=== PATIENT | male | born 1940 | race Caucasian/White ===

== ENCOUNTER 2017-06-20 09:35 | Inpatient (IN) | payer MEDICARE ==
[~2017-06-20] VITALS: Ht 172.7 cm; Wt 59.0 kg
[2017-06-20] MEDS ORDERED: IV NS 0.9% 1,000 ML BAG IV ONE (10:00)
[2017-06-20 10:09] LABS: BASOPHILS # (AUTO) 0.1 /CMM (0.0-0.2); BASOPHILS % (AUTO) 0.4 % (0.0-2.0); EOSINOPHILS # (AUTO) 0.3 /CMM (0.0-0.7); EOSINOPHILS % (AUTO) 2.3 % (0.0-6.0); HEMATOCRIT 38 % (39-51); HEMOGLOBIN 12.8 g/dL (13.5-17.5); LYMPHOCYTES # (AUTO) 2.2 /CMM (0.8-4.8); LYMPHOCYTES % (AUTO) 17.8 % (20.0-44.0); MEAN CORPUSCULAR HEMOGLOBIN 32 PG (26.0-33.0); MEAN CORPUSCULAR HGB CONC 33 g/dl (31.0-36.0); MEAN CORPUSCULAR VOLUME 96 fL (80-96); MONOCYTES # (AUTO) 1.1 /CMM (0.1-1.30); NEUTROPHILS # (AUTO) 8.9 /CMM (1.8-8.9); NEUTROPHILS % (AUTO) 70.5 % (43.0-81.0); PLATELET COUNT (AUTO) 159 /CMM (150-450); RDW COEFFICIENT OF VARIATION 13.1 (11.5-15.0); RED BLOOD CELL COUNT(AUTO) 3.96 MIL/uL (4.5-6.0); WHITE BLOOD COUNT (AUTO) 12.6 K/uL (4.3-11.0)
--- NOTE | 2017-06-20 10:27 | NUR ---
Pt BIB private ambulance, reports that pt has not been eating well for 7 days and is weak, worse in last 2 days. Pt A&Ox2, denies not eating well and weakness. Pt denies CP, SOB, dizziness, n/v, no complaints, no distress noted.
[2017-06-20 10:29] LABS: TROPONIN I 0.062 ng/mL (0.00-0.056)
[2017-06-20 10:31] LABS: INR 0.9 (0.87-1.13); PROTHROMBIN TIME 9.4 SECS (9.5-12.7)
[2017-06-20 10:32] LABS: ALANINE AMINOTRANSFERASE 326 U/L (12-78); ALBUMIN 3.4 g/dL (3.4-5.0); ALKALINE PHOSPHATASE 63 U/L (46-116); ASPARTATE AMINOTRANSFERASE 378 U/L (15-37); BILIRUBIN,DIRECT 0.2 mg/dL (0.0-0.2); BILIRUBIN,TOTAL 0.5 mg/dL (0.2-1.0); CARBON DIOXIDE 20 mmol/L (21-32); CHLORIDE 107 mmol/L (98-107); CREATININE 2.3 mg/dL (0.6-1.3); GLUCOSE 76 mg/dL (74-106); POTASSIUM 4.1 mmol/L (3.5-5.1); SODIUM SERUM 139 mmol/L (136-145); TOTAL PROTEIN, SERUM 7.2 g/dL (6.4-8.2)
[2017-06-20] MEDS ORDERED: CLOP75TA2 PO (10:34)
[2017-06-20] MEDS ORDERED: AMLO5TAB2 PO (10:34)
[2017-06-20] MEDS ORDERED: LISI10TA5 PO (10:34)
[2017-06-20] MEDS ORDERED: ESCI10TA PO (10:34)
[2017-06-20] MEDS ORDERED: POTA20TA83 PO (10:34)
[2017-06-20] MEDS ORDERED: FERR-58 PO (10:34)
[2017-06-20] MEDS ORDERED: PANT40TA4 PO (10:34)
[2017-06-20] MEDS ORDERED: MULT-659 PO (10:34)
[2017-06-20] MEDS ORDERED: ATOR40TA PO (10:34)
[2017-06-20] MEDS ORDERED: HYDR12.55 PO (10:34)
--- NOTE | 2017-06-20 10:36 | NUR ---
Paged Dr Terrell. Waiting for return call.
[2017-06-20 10:38] LABS: UREA NITROGEN, BLOOD 51 mg/dL (7-18)
[2017-06-20] MEDS ORDERED: CLOPIDOGREL BISULFATE 75 MG TABLET PO ONE (11:00)
[2017-06-20] MEDS ORDERED: AZITHROMYCIN 500 MG in IV D5W 250 ML IV ONE (11:00)
[2017-06-20] MEDS ORDERED: CEFTRIAXONE 1GM BAG (ER ONLY) 50 ML IV ONE (11:00)
[2017-06-20] MEDS ORDERED: AZITHROMYCIN 500 MG VIAL ONE (11:07)
[2017-06-20] MEDS ORDERED: CEFTRIAXONE 1 G VIAL ONE (11:07)
[2017-06-20] MEDS ORDERED: CLOPIDOGREL BISULFATE 75 MG TABLET ONE (11:07)
--- NOTE | 2017-06-20 11:39 | NUR ---
Called report to Amita.
--- NOTE | 2017-06-20 12:05 | NUR ---
TELE/RN NOTES RECEIVED PATIENT FROM ER VIA [facility] WITH ADMITTING DIAGNOSIS OF PNA, CHIEF COMPLIANT OF WEAKNESS, POOR ORAL INTAKE. PAST MEDICAL HISTORY OF CAD, HYPERTENSION, GASTRITIS, ALLERGIC TO ASPIRIN, FULL CODE NO ISO. PATIENT ALERT AND ORIENTED X2-3, ABLE TO FOLLOW VERBAL COMMANDS. TELE MONITORING TO EXTERNAL CHEST WITH SR WITH PAC 69. IV TO RIGHT AC 20G INFUSING ZITHRO AT THIS TIME. NO SKIN ISSUES NOTED AT THIS TIME. SAFETY MEASURES RENDERED, CALL LIGHT PLACED WITHIN REACH WILL CONTINUE TO MONITOR.
--- NOTE | 2017-06-20 15:02 | NUR ---
TELE/RN NOTES PATIENT GOT OUT OF BED TO USE THE RESTROOM WITHOUT CALLING FOR ASSISTANCE AND PULLED THE IV LINE OUT, BLOOD ALL OVER PLACE. CLEANED PATIENT AND COVERED SITE WITH 4X4. PATIENT NOTED WITH ACTIVE BLEEDING FORM AC POSSIBLY DUE TO THE PLAVIX. WILL START NEW IV LINE
[2017-06-20 16:00] VITALS: BP 122/72
--- NOTE | 2017-06-20 16:00 | NUR ---
TELE/RN NOTES STARTED IV TO LEFT AC 20G, IV FLUSH IV SUCCESSFUL WITH GOOD GOOD BLOOD RETURN.
[2017-06-20] MEDS ORDERED: ONDANSETRON HCL/PF 4 MG/2 ML VIAL IV PRN (17:30)
[2017-06-20] MEDS ORDERED: ACETAMINOPHEN 325 MG TABLET PO PRN (17:30)
[2017-06-20] MEDS ORDERED: Z GUARD REMEDY 4 OZ OINT TP PRN (17:30)
[2017-06-20] MEDS ORDERED: IV NS 0.9% 1,000 ML BAG IV PRN (18:00)
--- NOTE | 2017-06-20 18:52 | NUR ---
TELE/RN NOTES PATIENT RESTING IN BED COMFORTABLY IN BED, NO SIGNIFICANT CHANGES NOTED, STABLE. ALL DUE MEDIATIONS GIVEN ALL NEEDS MET AND ATTENDED. PATIENT KEPT SAFE, CLEAN AND COMFORTABLE. DR ALSTON AT BEDSIDE DISCUSSING CARE WITH ALL DISCIPLINES. WILL ENDORSE CARE TO SLASHER RUNNER FOR RHIANNON
--- NOTE | 2017-06-20 19:40 | NUR ---
ROLLWAY MAN OPENING NOTES RECEIVED PATIENT RESTING IN BED, A & O X 3, NO SOB, NO C/O PAIN, NO ACUTE CHANGES NOTED. RESP EVEN & NON LABORED. ON TELE MONITORING WITH SR PAC @ 66. IV ACCESS TO LAC, INTACT PATENT. SAFETY MEASURES IN PLACE. BED ALARM ON & IN LOW LOCKED POSITION. CALL LIGHT WITHIN REACH. WILL CONTINUE TO OBSERVE.
[2017-06-20 20:00] VITALS: BP 113/56
[2017-06-20] MEDS: BOOST PLUS FOOD-CHOCLATE 237 ML BOX PO SCH (20:27)
[2017-06-20 20:57] LABS: APPEARANCE,URINE CLEAR (CLEAR); BILIRUBIN,URINE NEGATIVE (NEGATIVE); BLOOD, URINE 3+ Ery/uL (NEGATIVE); COLOR,URINE YELLOW (YELLOW); KETONES,URINE NEGATIVE (NEGATIVE); LEUKOCYTE ESTERASE ,URINE NEGATIVE (NEGATIVE); NITRITE, URINE NEGATIVE (NEGATIVE); PH,URINE 5.5 (5.0-8.0); PROTEIN,URINE TRACE mg/dl (NEGATIVE); UGLUCOSE NEGATIVE (NEGATIVE); UROBILINOGEN,URINE 0.2 EU/dL (0.2)
[2017-06-20 20:59] LABS: BACTERIA,URINE Few /HPF (None Seen); SQUAMOUS EPITHELIAL CELL,UR Few /HPF (None Seen); WBC,URINE NONE SEEN /HPF (0-3)
[2017-06-20] MEDS: IV NS 0.9% 1,000 ML IV PRN (21:00)
[2017-06-21] VITALS (7 sets, daily range): BP systolic 108–124; BP diastolic 44–67
[2017-06-21 06:29] LABS: BASOPHILS % (AUTO) 0.1 % (0.0-2.0); EOSINOPHILS # (AUTO) 0.2 /CMM (0.0-0.7); HEMATOCRIT 35 % (39-51); HEMOGLOBIN 11.7 g/dL (13.5-17.5); LYMPHOCYTES # (AUTO) 1.9 /CMM (0.8-4.8); MEAN CORPUSCULAR HEMOGLOBIN 33 PG (26.0-33.0); MEAN CORPUSCULAR HGB CONC 34 g/dl (31.0-36.0); MEAN CORPUSCULAR VOLUME 97 fL (80-96); MONOCYTES # (AUTO) 0.8 /CMM (0.1-1.30); MONOCYTES % (AUTO) 8.6 % (2.0-12.0); NEUTROPHILS % (AUTO) 70.3 % (43.0-81.0); PLATELET COUNT (AUTO) 126 /CMM (150-450); RDW COEFFICIENT OF VARIATION 13.7 (11.5-15.0); RED BLOOD CELL COUNT(AUTO) 3.56 MIL/uL (4.5-6.0); WHITE BLOOD COUNT (AUTO) 9.9 K/uL (4.3-11.0)
--- NOTE | 2017-06-21 06:41 | NUR ---
CORRECTIONAL FACILITY PSYCHIATRIST CLOSING NOTES PATIENT SLEPT WELL @ NIGHT, NO SOB, RESP EVEN & NONLABORED. NO C/O PAIN, NO SOB NOTED. A & O X 3. ON TELE MONITORING WITH SR 62. BRP WITH ASSIST @ NIGHT. IV ACCESS TO LAC, INTACT PATENT, RUNNING WITH NS @ 75 ML/HR. NO ACUTE CHANGES NOTED. SAFETY MEASURES IN PLACE. BED IN LOW LOCKED POSITION. CALL LIGHT WITHIN REACH. WILL ENDORSE TO AM RN FOR CONTINUITY OF CARE.
[2017-06-21 07:05] LABS: ALANINE AMINOTRANSFERASE 281 U/L (12-78); ALBUMIN 2.8 g/dL (3.4-5.0); ALKALINE PHOSPHATASE 57 U/L (46-116); ASPARTATE AMINOTRANSFERASE 301 U/L (15-37); BILIRUBIN,TOTAL 0.4 mg/dL (0.2-1.0); CALCIUM, SERUM 8.8 mg/dL (8.5-10.1); CARBON DIOXIDE 18 mmol/L (21-32); CHLORIDE 110 mmol/L (98-107); CREATININE 1.6 mg/dL (0.6-1.3); GLUCOSE 89 mg/dL (74-106); POTASSIUM 4.4 mmol/L (3.5-5.1); SODIUM SERUM 139 mmol/L (136-145); TOTAL PROTEIN, SERUM 6.1 g/dL (6.4-8.2); UREA NITROGEN, BLOOD 44 mg/dL (7-18)
[2017-06-21 07:08] LABS: TROPONIN I 0.073 ng/mL (0.00-0.056)
--- NOTE | 2017-06-21 07:29 | NUR ---
HARNESS BRUSHER OPENING NOTES RECEIVED PATIENT AWAKE IN BED IN NO ACUTE SIGNS OF DISTRESS. A/O X 3, SAME ABLE TO MAKE NEEDS KNOWN, DENIES PAIN OR DISCOMFORTS AT THIS TIME. ON ROOM AIR, TOLERATING RA WITH NO SOB NOTED. ON TELE-MONITORING WITH CURRENT READINGS OF SR AND HR 67. IV ACCESS ON LOWER FOREARM INTACT PATENT, IVF OF NS @ 75ML/HR RUNNING, NO SIGNS OF INFILTRATION NOTED. BED ALARM ON. BED IN LOW/LOCKED POSITION. CALL LIGHT WITHIN REACH. WILL CONTINUE TO MONITOR ACCORDINGLY.
--- NOTE | 2017-06-21 08:32 | NUR ---
RN NOTES PATIENT SEEN AND EVALUATED BY DR. ARIAS WITH ORDER TO DISCONTINUE TELE-MONITORING. ORDER CARRIED OUT, PT WITH NO C/O CHEST PAIN OR DISCOMFORTS VOICED. WILL CONTINUE TO MONITOR.
[2017-06-21] MEDS: BOOST PLUS FOOD-CHOCLATE 237 ML BOX PO SCH ×2 (08:56→17:08)
[2017-06-21] MEDS: MULTIVITAMINS,THERAGRAN 1 UDTAB TABLET PO SCH (09:12)
[2017-06-21] MEDS: CLOPIDOGREL BISULFATE 75 MG TABLET PO SCH (09:12)
[2017-06-21] MEDS: PANTOPRAZOLE 40 MG TABLET.DR PO SCH (09:12)
[2017-06-21] MEDS: ESCITALOPRAM OXALATE (10 MG) 10 MG TABLET PO SCH (09:12)
[2017-06-21] MEDS: CEFTRIAXONE 1 G in IV D5W 50 ML IV SCH (11:38)
[2017-06-21] MEDS: AZITHROMYCIN 500 MG in IV D5W 250 ML IV SCH (12:13)
[2017-06-21] MEDS: IV NS 0.9% 1,000 ML IV PRN (17:11)
--- NOTE | 2017-06-21 17:41 | NUR ---
Spoke with Rosa - staff submarine warfare officer at the [facility], confirmed patient resides at [facility] [phone]. Patient is ambulatory and set- up help with adl's. Has no DME or homehealth reported. Will need transportation when discharge to [facility] Addendum: 06/21/17 at 1741 by EJ WRIGHT RN Amended: Links added.
--- NOTE | 2017-06-21 19:22 | NUR ---
MS RN CLOSING NOTES PATIENT AWAKE AND RESTING AT MODERATE HIGH BACKREST IN BED. A & O X 3, NO SOB, NO C/O PAIN, NO ACUTE CHANGES NOTED THROUGHOUT THE DAY. ON ROOM AI, RESPIRATION EVEN & NON LABORED. IV ACCESS TO L WRIST INTACT PATENT WITH IVF OF NS @ 75ML/HR, NO SIGNS OF INFILTARTION NOTED. SAFETY MEASURES IN PLACE. BED ALARM ON & IN LO/LOCKED POSITION. CALL LIGHT WITHIN REACH. ALL NEEDS AND CARE PROVIDED WELL. ENDORSED TO TRADE PROMOTION ANALYST NURSE FOR RHIANNON.
--- NOTE | 2017-06-21 19:30 | NUR ---
MSRN FULLY AWAKE, COOPERATIVE, LIMITED VERBAL. NO SOB, IV SITE INFILTRATED. IVF HELD FOR NOW. INFORMED PATIENT NEED TO MOVE TO 2ND FLOOR. NO NEEDS FOR NOW.
--- NOTE | 2017-06-21 20:45 | NUR ---
MSRN MOVVED TO 2ND FLOOR WITH ALL PERSONAL BELONGINGS VIA WHEELCHAIR. PLACED TO BED COMFORTABLY. SATURATION ON RA 98%. FORGETFUL, SAFETY PRECAUTIONS EMPHASIZED, APPEARS TO UNDERSTAND. CLOSELY WATCHED. RESTARTED 22 GAUGE RIGHT HAND WITH GOOD BLOOD RETURN. PRESENT IVF CONTINUED.
--- NOTE | 2017-06-22 00:09 | NUR ---
GAUTAM SAT ON THE SIDE OF HIS BED 3 TIMES, CONFUSED. REALITY ORIENTATION, ABLE TO POSITION SELF TO BED BY HIMSELF. REMINDED TO CALL STAFF FOR ANY ASSISTANCE OR DISCOMFORTS, APPEARS TO UNDERSTAND. NEEDS FREQUENT REMINDERS. CONSTANTLY WATCHED.
--- NOTE | 2017-06-22 05:30 | NUR ---
MSRN AWAKENED, ASSISTED TO RESTROOM VOIDED FREELY, REFUSED TO USE URINAL.
--- NOTE | 2017-06-22 06:17 | NUR ---
MSRN SLEEPING APPEARS COMFORTABLE.
[2017-06-22 06:26] LABS: BASOPHILS % (AUTO) 0.3 % (0.0-2.0); EOSINOPHILS # (AUTO) 0.3 /CMM (0.0-0.7); EOSINOPHILS % (AUTO) 3.5 % (0.0-6.0); HEMATOCRIT 33 % (39-51); HEMOGLOBIN 11.3 g/dL (13.5-17.5); LYMPHOCYTES # (AUTO) 1.9 /CMM (0.8-4.8); LYMPHOCYTES % (AUTO) 21.1 % (20.0-44.0); MEAN CORPUSCULAR HEMOGLOBIN 33 PG (26.0-33.0); MEAN CORPUSCULAR HGB CONC 34 g/dl (31.0-36.0); MEAN CORPUSCULAR VOLUME 97 fL (80-96); MONOCYTES # (AUTO) 0.9 /CMM (0.1-1.30); MONOCYTES % (AUTO) 9.8 % (2.0-12.0); NEUTROPHILS # (AUTO) 5.9 /CMM (1.8-8.9); NEUTROPHILS % (AUTO) 65.3 % (43.0-81.0); PLATELET COUNT (AUTO) 130 /CMM (150-450); RDW COEFFICIENT OF VARIATION 13.7 (11.5-15.0); RED BLOOD CELL COUNT(AUTO) 3.44 MIL/uL (4.5-6.0)
[2017-06-22 06:50] LABS: ALANINE AMINOTRANSFERASE 281 U/L (12-78); ALBUMIN 2.8 g/dL (3.4-5.0); ALKALINE PHOSPHATASE 55 U/L (46-116); ASPARTATE AMINOTRANSFERASE 297 U/L (15-37); BILIRUBIN,TOTAL 0.6 mg/dL (0.2-1.0); MAGNESIUM 1.7 mg/dL (1.8-2.4); TOTAL PROTEIN, SERUM 6.1 g/dL (6.4-8.2)
[2017-06-22 06:54] LABS: CALCIUM, SERUM 8.9 mg/dL (8.5-10.1); CARBON DIOXIDE 20 mmol/L (21-32); CHLORIDE 105 mmol/L (98-107); CREATININE 1.3 mg/dL (0.6-1.3); GLUCOSE 81 mg/dL (74-106); POTASSIUM 3.8 mmol/L (3.5-5.1); SODIUM SERUM 137 mmol/L (136-145); UREA NITROGEN, BLOOD 34 mg/dL (7-18)
[2017-06-22 08:00] VITALS: BP 107/56
--- NOTE | 2017-06-22 08:00 | NUR ---
RN NOTES RECEIVED PATIENT IN THE ROOM, A/O X3, QUIET, REDIRECTABLE PATIENT HAS NO RESPIRATORY DISTRESS, NO ACUTE DISTRESS, ENCOURAGED TO EXPRESS FEELINGS AND CONCERNS TO NSG, NO C/O PAIN AT THIS TIME, ASSIST TO THE BATHROOM, V/S TAKEN STABLE, SCHEDULED MEDICATION ADMINISTERED, IV LINE ON LEFT HAND INTACT INFUSING NS 75 ML/HR, NEEDS ATTENDED AND ANTICIPATED, CALL LIGHT WITHIN TO REACH, SAFETY PRECAUTION MAINTAINED ALL THE TIME.
[2017-06-22] MEDS: CLOPIDOGREL BISULFATE 75 MG TABLET PO SCH (09:23)
[2017-06-22] MEDS: MULTIVITAMINS,THERAGRAN 1 UDTAB TABLET PO SCH (09:23)
[2017-06-22] MEDS: BOOST PLUS FOOD-CHOCLATE 237 ML BOX PO SCH ×2 (09:23→16:26)
[2017-06-22] MEDS: ESCITALOPRAM OXALATE (10 MG) 10 MG TABLET PO SCH (09:23)
[2017-06-22] MEDS: PANTOPRAZOLE 40 MG TABLET.DR PO SCH (09:23)
[2017-06-22] MEDS: CEFTRIAXONE 1 G in IV D5W 50 ML IV SCH (11:00)
[2017-06-22] MEDS: AZITHROMYCIN 500 MG in IV D5W 250 ML IV SCH (11:32)
--- NOTE | 2017-06-22 12:05 | NUR ---
RN NOTES PATIENT WALKING IN THE HALLWAY WITH PT, NO ACUTE DISTRESS, NO SOB AT THIS TIME, CONTINUED MONITORING.
--- NOTE | 2017-06-22 13:30 | NUR ---
RN NOTES COLLECTED STOOL OB , CALLED LAB FOR PIN DRAFTING MACHINE OPERATOR, CONTINUED MONITORING.
[2017-06-22 16:00] VITALS: BP 96/50
--- NOTE | 2017-06-22 16:00 | NUR ---
RN NOTES PATIENT IN THE BED RESTING IN THE BED, IV LINE LEFT FA INTACT INFUSING NS -75 ML /HR, CALL LIGHT WITHIN TO REACH, BED ALARM ON, SAFETY PRECAUTION MAINTAINED ALL THE TIME.
--- NOTE | 2017-06-22 18:49 | NUR ---
RN NOTES PATIENT IN THE BED, SEE BY Dr. ALSTON, NOTIFIED ABOUT MG- 1,7 LEVEL , NO NEW ORDER, NEEDS ATTENDED AND ANTICIPATED, IV ND LEFT FOREARM INFUSING 75 ML/HR INTACT, NO ACUTE , NO RESPIRATORY DISTRESS./ CONTINUED MONITORING. ENDORSED ONCOMING NURSE FOR CONTINUATION OF CARE.
[2017-06-22] MEDS: Magnesium 1GM/D5W 100ML PREMIX 100 ML IV SCH ×2 (19:08→20:27)
--- NOTE | 2017-06-22 19:40 | NUR ---
MS RN NOTE: PATIENT RESTING IN BED, NO ACUTE DISTRESS NOTED. BREATHING EVEN AND UNLABORED, NO SOB NOTED. IV TO LFA IN PLACE, INFUSING NS AT 75 ML/HR. BED LOCKED AND IN LOWEST POSITION, CALL LIGHT IN REACH. WILL CONTINUE TO MONITOR.
[2017-06-22 20:01] VITALS: BP 115/62
--- NOTE | 2017-06-23 03:45 | NUR ---
MS RN NOTE: PATIENT SLEEPING IN BED, NO ACUTE DISTRESS NOTED. BREATHING EVEN AND UNLABORED, NO SOB NOTED. BED LOCKED AND IN LOWEST POSITION, CALL LIGHT IN REACH. WILL CONTINUE TO MONITOR.
--- NOTE | 2017-06-23 06:00 | NUR ---
MS RN NOTE: PATIENT RESTING IN BED, NO ACUTE DISTRESS NOTED. BREATHING EVEN AND UNLABORED, NO SOB NOTED. IV TO LFA IN PLACE, INFUSING NS AT 75 ML/HR. BED LOCKED AND IN LOWEST POSITION, CALL LIGHT IN REACH. WILL ENDORSE TO DAY NURSE TO CONTINUE WITH PLAN OF CARE.
[2017-06-23] MEDS: IV NS 0.9% 1,000 ML IV PRN (06:38)
[2017-06-23 07:15] LABS: BASOPHILS % (AUTO) 0.3 % (0.0-2.0); EOSINOPHILS # (AUTO) 0.3 /CMM (0.0-0.7); EOSINOPHILS % (AUTO) 4.2 % (0.0-6.0); HEMATOCRIT 32 % (39-51); HEMOGLOBIN 10.9 g/dL (13.5-17.5); LYMPHOCYTES # (AUTO) 1.7 /CMM (0.8-4.8); LYMPHOCYTES % (AUTO) 21.3 % (20.0-44.0); MEAN CORPUSCULAR HEMOGLOBIN 33 PG (26.0-33.0); MEAN CORPUSCULAR HGB CONC 34 g/dl (31.0-36.0); MEAN CORPUSCULAR VOLUME 96 fL (80-96); MONOCYTES # (AUTO) 0.9 /CMM (0.1-1.30); MONOCYTES % (AUTO) 10.8 % (2.0-12.0); NEUTROPHILS # (AUTO) 5.2 /CMM (1.8-8.9); NEUTROPHILS % (AUTO) 63.4 % (43.0-81.0); PLATELET COUNT (AUTO) 130 /CMM (150-450); RDW COEFFICIENT OF VARIATION 13.9 (11.5-15.0); RED BLOOD CELL COUNT(AUTO) 3.33 MIL/uL (4.5-6.0); WHITE BLOOD COUNT (AUTO) 8.2 K/uL (4.3-11.0)
[2017-06-23 07:35] LABS: ALANINE AMINOTRANSFERASE 250 U/L (12-78); ALBUMIN 2.8 g/dL (3.4-5.0); ALKALINE PHOSPHATASE 53 U/L (46-116); ASPARTATE AMINOTRANSFERASE 230 U/L (15-37); BILIRUBIN,TOTAL 0.5 mg/dL (0.2-1.0); CARBON DIOXIDE 23 mmol/L (21-32); CHLORIDE 106 mmol/L (98-107); CREATININE 1.2 mg/dL (0.6-1.3); GLUCOSE 80 mg/dL (74-106); POTASSIUM 3.3 mmol/L (3.5-5.1); SODIUM SERUM 139 mmol/L (136-145); UREA NITROGEN, BLOOD 31 mg/dL (7-18)
[2017-06-23 08:00] VITALS: BP_SYST 132; BP_SYST 169; BP_DIAS 65; BP_DIAS 67
--- NOTE | 2017-06-23 08:00 | NUR ---
RN NOTES SEEN PATIENT IN THE BED A/O X2/3, LYING QUIETLY, ENCOURAGED TO EXPRESS FEELINGS AND CONCERNS, PATIENT REFUSED PAIN AT THIS TIME, NO RESPIRATORY DISTRESS, V/S TAKEN STABLE, INFUSING NS-75 ML/HR, INTACT, NEEDS ATTENDED AND ANTICIPATED, CALL LIGHT WITHIN TO REACH, CONTINUED MONITORING FOR SAFETY.
[2017-06-23] MEDS: CLOPIDOGREL BISULFATE 75 MG TABLET PO SCH (08:35)
[2017-06-23] MEDS: PANTOPRAZOLE 40 MG TABLET.DR PO SCH (08:35)
[2017-06-23] MEDS: ESCITALOPRAM OXALATE (10 MG) 10 MG TABLET PO SCH (08:35)
[2017-06-23] MEDS: MULTIVITAMINS,THERAGRAN 1 UDTAB TABLET PO SCH (08:35)
[2017-06-23] MEDS: BOOST PLUS FOOD-CHOCLATE 237 ML BOX PO SCH ×2 (09:31→16:26)
[2017-06-23] MEDS: AZITHROMYCIN 500 MG in IV D5W 250 ML IV SCH (11:00)
[2017-06-23] MEDS: CEFTRIAXONE 1 G in IV D5W 50 ML IV SCH (11:23)
--- NOTE | 2017-06-23 12:04 | NUR ---
RN NOTES PATIENT IN THE BED, RESTING QUIETLY, REDIRECTABLE, NO ACUTE/ NO RESPIRATORY DISTRESS, PATIENT AROM, SAFETY PRECAUTION MAINTAINED ALL THE TIME, CALL LIGHT WITHIN TO REACH. CONTINUED MONITORING.
--- NOTE | 2017-06-23 13:58 | NUR ---
RN NOTES CALLED Dr. ALSTON ABOUT K+ 3.3 LEVEL, AND GET ORDER K-DUR 40 MEQ PO X1 NOW , ORDER TAKEN, AND CARRIED OUT. CONTINUED MONITORING.
[2017-06-23] MEDS ORDERED: POTASSIUM CHLORIDE 20 MEQ TAB.PRT.SR PO SCH (14:00)
[2017-06-23 16:00] VITALS: BP 109/53
--- NOTE | 2017-06-23 18:45 | NUR ---
RN NOTES STARTED NEW IV LINE ON RIGHT FOREARM GAUGE #22, AND INFUSING NS @75 ML/HR, INTACT, PATIENT MED COMPLIANT, V/S STABLE, PATIENT REFUSED PAIN AT THIS TIME, NEEDS ATTENDED AND ANTICIPATED, CALL LIGHT WITHIN TO REACH, PATIENT TURN AND REPOSITION SELF IN THE BED, SAFETY PRECAUTION MAINTAINED ALL THE TIME. ENDORSED ONCOMING NURSE FOR CONTINUATION OF CARE.
--- NOTE | 2017-06-23 19:40 | NUR ---
MS RN NOTE: PATIENT RESTING IN BED, NO ACUTE DISTRESS NOTED. BREATHING EVEN AND UNLABORED, NO SOB NOTED. IV TO RFA IN PLACE, INFUSING NS AT 75 ML/HR. BED LOCKED AND IN LOWEST POSITION, CALL LIGHT IN REACH. WILL CONTINUE TO MONITOR.
[2017-06-23 20:00] VITALS: BP 130/68
[2017-06-24] MEDS: IV NS 0.9% 1,000 ML IV PRN (05:45)
--- NOTE | 2017-06-24 06:10 | NUR ---
MS RN NOTE: PATIENT RESTING IN BED, NO ACUTE DISTRESS NOTED. BREATHING EVEN AND UNLABORED, NO SOB NOTED. IV TO RFA IN PLACE, INFUSING NS AT 75 ML/HR. BED LOCKED AND IN LOWEST POSITION, CALL LIGHT IN REACH. WILL ENDORSE TO DAY NURSE TO CONTINUE WITH PLAN OF CARE.
[2017-06-24 07:10] LABS: BASOPHILS % (AUTO) 0.4 % (0.0-2.0); EOSINOPHILS # (AUTO) 0.3 /CMM (0.0-0.7); EOSINOPHILS % (AUTO) 4.5 % (0.0-6.0); HEMATOCRIT 32 % (39-51); HEMOGLOBIN 10.9 g/dL (13.5-17.5); LYMPHOCYTES # (AUTO) 1.7 /CMM (0.8-4.8); LYMPHOCYTES % (AUTO) 23.1 % (20.0-44.0); MEAN CORPUSCULAR HEMOGLOBIN 33 PG (26.0-33.0); MEAN CORPUSCULAR HGB CONC 34 g/dl (31.0-36.0); MEAN CORPUSCULAR VOLUME 97 fL (80-96); MONOCYTES % (AUTO) 13.2 % (2.0-12.0); NEUTROPHILS # (AUTO) 4.4 /CMM (1.8-8.9); NEUTROPHILS % (AUTO) 58.8 % (43.0-81.0); PLATELET COUNT (AUTO) 129 /CMM (150-450); RDW COEFFICIENT OF VARIATION 14.3 (11.5-15.0); RED BLOOD CELL COUNT(AUTO) 3.33 MIL/uL (4.5-6.0); WHITE BLOOD COUNT (AUTO) 7.4 K/uL (4.3-11.0)
[2017-06-24 07:21] LABS: CALCIUM, SERUM 8.6 mg/dL (8.5-10.1); CARBON DIOXIDE 22 mmol/L (21-32); CHLORIDE 108 mmol/L (98-107); CREATININE 1.1 mg/dL (0.6-1.3); GLUCOSE 85 mg/dL (74-106); MAGNESIUM 1.8 mg/dL (1.8-2.4); POTASSIUM 3.6 mmol/L (3.5-5.1); SODIUM SERUM 139 mmol/L (136-145); UREA NITROGEN, BLOOD 25 mg/dL (7-18)
[2017-06-24 08:00] VITALS: BP 118/60
--- NOTE | 2017-06-24 08:00 | NUR ---
RN NOTES PATIENT RECEIVED IN THE BED A/O X2/3, NO ACUTE , NO RESPIRATORY DISTRESS AT THIS TIME. PATIENT REDIRECTABLE, NEEDS ATTENDED AND ANTICIPATED, INFUSING IV ON RIGHT FOREARM NS 75 ML/HR, PATIENT MED COMPLIANT, V/S STABLE. ASSIST PATIENT ADL'S, AND BARTROOM. CALL LIGHT WITHIN TO REACH, CONTINUED MONITORING.
[2017-06-24] MEDS: PANTOPRAZOLE 40 MG TABLET.DR PO SCH (08:41)
[2017-06-24] MEDS: CLOPIDOGREL BISULFATE 75 MG TABLET PO SCH (08:41)
[2017-06-24] MEDS: ESCITALOPRAM OXALATE (10 MG) 10 MG TABLET PO SCH (08:41)
[2017-06-24] MEDS: MULTIVITAMINS,THERAGRAN 1 UDTAB TABLET PO SCH (08:41)
[2017-06-24] MEDS ORDERED: AZITHROMYCIN 250 MG TABLET PO SCH (09:00)
[2017-06-24] MEDS: BOOST PLUS FOOD-CHOCLATE 237 ML BOX PO SCH ×2 (10:15→16:35)
[2017-06-24] MEDS: CEFTRIAXONE 1 G in IV D5W 50 ML IV SCH (13:54)
--- NOTE | 2017-06-24 14:46 | NUR ---
RN NOTES PATIENT GOING TO D/C BACK TO SNF PER DR ALSTON.
[2017-06-24 16:00] VITALS: BP 105/51
--- NOTE | 2017-06-24 19:20 | NUR ---
DISCHARGE NOTES PATIENT DISCHARGE AT THIS TIME GOING BACK TO SNF. PATIENT A/O X2/3, MED COMPLIANT, V/S STABLE, MEDICALLY STABLE, NO C/O PAIN. MED RECONCILIATION AND DISCHARGE ORDER REVIEWED AND EXPLAINED TO SNF WILNRE LOW. RN VERBALIZED UNDERSTANDING. BELONGING RETURNED BACK TO THE PATIENT. PATIENT SIGN PAPERWORK, PICTURE TAKEN. PATIENT TIRE AND LUBE TECHNICIAN BY AMBULANCE. FAMILY AWARE OF DISCHARGE ORDER.
== END 2017-06-24 19:20 | DRG 871 ==
LOC: ER 09:43 → TELE 11:24 → MED 06-21 08:03 → MEDSG2 06-21 20:48
PROVIDERS: ADMIT Internal Medicine; ATTEND Internal Medicine
DX: A41.9 Sepsis, unspecified organism (principal); J18.9 Pneumonia, unspecified organism; N17.9 Acute kidney failure, unspecified; E46 Unspecified protein-calorie malnutrition; I11.0 Hypertensive heart disease with heart failure; C79.9 Secondary malignant neoplasm of unspecified site; E87.2 Acidosis; I50.32 Chronic diastolic (congestive) heart failure; D64.9 Anemia, unspecified; C67.9 Malignant neoplasm of bladder, unspecified; D50.9 Iron deficiency anemia, unspecified; F17.200 Nicotine dependence, unspecified, uncomplicated; E86.0 Dehydration; N18.9 Chronic kidney disease, unspecified; R62.7 Adult failure to thrive; I25.10 Atherosclerotic heart disease of native coronary artery without angina pectoris; Z79.82 Long term (current) use of aspirin; Z79.899 Other long term (current) drug therapy; E78.5 Hyperlipidemia, unspecified; I70.0 Atherosclerosis of aorta; J44.9 Chronic obstructive pulmonary disease, unspecified; Z98.61 Coronary angioplasty status; Z88.6 Allergy status to analgesic agent; Z86.74 Personal history of sudden cardiac arrest; Z79.02 Long term (current) use of antithrombotics/antiplatelets; I25.2 Old myocardial infarction
CPT/HCPCS: 36415; 71010-TC; 76705-TC; 76770-TC; 80048-TC; 80053-TC; 80076-TC; 81000-TC; 82272-TC; 82378; 83605-TC; 83735-TC; 84100-TC; 84484-TC; 85025-TC; 85730-TC; 87040-TC; 87081-TC; 87086-TC; 93307-TC; A4216; A4606; J0456; J0696; J3475; J7030; J7060; Z7610

== ENCOUNTER 2017-08-01 11:55 | Emergency (ER) | payer MEDICARE ==
[~2017-08-01] VITALS: Ht 172.7 cm; Wt 68.0 kg
[~2017-08-01 11:55] MED LIST: AMLO5TAB2 PO; ATOR40TA PO; CLOP75TA15 PO; ESCI10TA PO; FERR-58 PO; HYDR12.55 PO; LISI10TA5 PO; MULT-659 PO; PANT40TA4 PO; POTA20TA83 PO
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
[2017-08-01 12:34] LABS: CALCIUM, SERUM 9.2 mg/dL (8.5-10.1); CARBON DIOXIDE 25 mmol/L (21-32); CHLORIDE 102 mmol/L (98-107); CREATININE 1.3 mg/dL (0.6-1.3); GLUCOSE 106 mg/dL (74-106); POTASSIUM 4.2 mmol/L (3.5-5.1); SODIUM SERUM 136 mmol/L (136-145); UREA NITROGEN, BLOOD 22 mg/dL (7-18)
[2017-08-01 12:43] LABS: TROPONIN I < 0.017 ng/mL (0.00-0.056)
[2017-08-01 12:50] LABS: INR 0.98 (0.87-1.13); PROTHROMBIN TIME 10.2 SECS (9.5-12.7)
--- NOTE | 2017-08-01 13:39 | NUR ---
RESTING QUIETLY, NAD NOTED. REPORTS MILD PAIN BUT DENIES NEED FOR PAIN MEDICATION
--- NOTE | 2017-08-01 13:42 | NUR ---
REQUESTED [facility] FOR TRANSPORT BACK TO [facility], ETA 30-45 MIN, TRIP #[id number]
[2017-08-01] MEDS ORDERED: ACETAMINOPHEN ES 500 MG TABLET ONE (13:48)
[2017-08-01 13:51] LABS: BASOPHILS % (AUTO) 0.4 % (0.0-2.0); EOSINOPHILS # (AUTO) 0.3 /CMM (0.0-0.7); EOSINOPHILS % (AUTO) 2.5 % (0.0-6.0); HEMATOCRIT 36 % (39-51); HEMOGLOBIN 12.6 g/dL (13.5-17.5); LYMPHOCYTES # (AUTO) 1.5 /CMM (0.8-4.8); MEAN CORPUSCULAR HEMOGLOBIN 34 PG (26.0-33.0); MEAN CORPUSCULAR HGB CONC 35 g/dl (31.0-36.0); MEAN CORPUSCULAR VOLUME 96 fL (80-96); MONOCYTES # (AUTO) 0.9 /CMM (0.1-1.30); MONOCYTES % (AUTO) 8.5 % (2.0-12.0); NEUTROPHILS # (AUTO) 7.4 /CMM (1.8-8.9); NEUTROPHILS % (AUTO) 73.6 % (43.0-81.0); PLATELET COUNT (AUTO) 234 /CMM (150-450); RED BLOOD CELL COUNT(AUTO) 3.75 MIL/uL (4.5-6.0); WHITE BLOOD COUNT (AUTO) 10.1 K/uL (4.3-11.0)
[2017-08-01] MEDS ORDERED: ACETAMINOPHEN ES 500 MG TABLET PO ONE (14:00)
--- NOTE | 2017-08-01 14:15 | NUR ---
PROVIDED WITH LUNCH TRAY PER PT REQUEST
--- NOTE | 2017-08-01 14:49 | NUR ---
REPORT GIVEN TO CAMILA AT [facility]. REPORT GIVEN TO JUMA[facility] WHITLEY FOR TRANSPORT.
[2017-08-01 14:51] VITALS: BP 108/71
== END 2017-08-01 14:52 ==
LOC: ER 11:57
DX: S02.2XXA Fracture of nasal bones, initial encounter for closed fracture (principal); S01.21XA Laceration without foreign body of nose, initial encounter; S00.83XA Contusion of other part of head, initial encounter; S00.81XA Abrasion of other part of head, initial encounter; I63.9 Cerebral infarction, unspecified; I25.10 Atherosclerotic heart disease of native coronary artery without angina pectoris; I10 Essential (primary) hypertension; D50.9 Iron deficiency anemia, unspecified; Z88.6 Allergy status to analgesic agent; W01.0XXA Fall on same level from slipping, tripping and stumbling without subsequent striking against object, initial encounter; Y93.89 Activity, other specified; Y92.89 Other specified places as the place of occurrence of the external cause; Y99.8 Other external cause status
CPT/HCPCS: 36415; 70450-TC; 70486-TC; 71045-TC; 80048-TC; 84484-TC; 85025-TC; 85730-TC; A4217; A4606; A6403; Z7610